=== PATIENT | male | born 1985 | race Two or more races ===

== ENCOUNTER → 2019-12-30 | Emergency (ER) | payer OTHER ==
[~2019-12-30] VITALS: Ht 180.3 cm; Wt 85.3 kg
== END | disposition home or self-care (01) ==
LOC: ER 20:01
DX: S40.872A Other superficial bite of left upper arm, initial encounter (principal); L03.114 Cellulitis of left upper limb; W54.0XXA Bitten by dog, initial encounter; Y93.89 Activity, other specified; Y92.89 Other specified places as the place of occurrence of the external cause; Y99.8 Other external cause status